=== PATIENT | male | born 1995 | race Caucasian/White ===

== ENCOUNTER 2017-07-31 20:16 | Emergency (ER) | payer BC, SELFPAY ==
[2017-07-31 20:17] VITALS: BP 133/77; PULSE 84; RESP 17; TEMP 37.2; O2SAT 97; BMI 26.4
--- NOTE | 2017-07-31 22:31 | ED.DCSUM_ITS ---
- ER Visit Summary Date of Service: 07/31/17 Chief Complaint: [] Out of ADHD medication History of Present Illness: The patient is a 21 M stated he has been out of his ADHD medication. His last refill was almost a year ago. He is having difficulties with his ADHD recently with work and requesting a refill. He called his family doctor and was told he have to come into the office since his been so long. He states they have a 3 month wait at this time. Physical Examination: Vital signs reviewed General: Well-nourished well-developed Head: Normocephalic atraumatic Eyes: Pupils equal round and reactive to light extraocular movements intact ENT: TMs clear no hemotympanum no trauma Neck: Nontender full range of motion Cardiovascular: Regular rate rhythm no murmurs normal S1-S2 Respiratory: No distress clear to auscultation bilaterally chest nontender Abdomen: Soft nontender nondistended normal bowel sounds no masses Back: Nontender no CVA tenderness Extremities: Nontender active range of motion ?4 extremities no trauma Skin: Normal color no trauma Neuro alert oriented cranial nerves II through XII intact normal strength sensation reflexes Test Results: [] Emergency Department Course and Treatment: [] Test with the patient that I will refill his medications for the next 2 weeks. I did check and oars report. His last prescription was almost a year ago. Treatment Plan: [] Disposition: [] Impression: [] Medication refill This note was generated with [employer] dictation software. It may contain incorrect words, spelling, and punctuation that were not noted in review of the chart prior to signing ED Disposition - Plan for ED Patient: Chief Complaint: Med Refill Referrals: Bhaskar Daly MD [Primary Care Provider] -
--- NOTE | 2017-07-31 22:31 | ED.DEP ---
ED Disposition - Plan for ED Patient: Disposition: Home or Assisted Living Chief Complaint: Med Refill Instructions: Med Refill Prescriptions: Methylphenidate HCl [Concerta] 36 mg PO DAILY #15 tab.er.[id number] Referrals: Bhaskar Daly MD [Primary Care Provider] -
[2017-07-31 22:37] VITALS: BP 131/70; PULSE 80; RESP 16; O2SAT 98
== END 2017-07-31 22:38 | disposition home or self-care (01) ==
PROVIDERS: Emergency Provider Emergency Medicine; Family Provider Family Medicine; PCP Family Medicine
DX: Z76.0 Encounter for issue of repeat prescription (principal); F90.9 Attention-deficit hyperactivity disorder, unspecified type
CPT/HCPCS: 99282